=== PATIENT | male | born 1980 | race Caucasian/White ===

== ENCOUNTER 2021-01-23 09:56 | Outpatient (CLI) | payer BC, SELFPAY | END 2021-01-23 09:57 | disposition home or self-care (01) | LOC: ANHCOVIDVC 09:56 | DX: Z23 Encounter for immunization (principal) | CPT/HCPCS: 0001A; 91300 ==

== ENCOUNTER 2021-02-13 09:29 | Outpatient (CLI) | payer BC, SELFPAY | END 2021-02-13 09:30 | disposition home or self-care (01) | LOC: ANHCOVIDVC 09:29 | DX: Z23 Encounter for immunization (principal) | CPT/HCPCS: 0002A; 91300 ==